=== PATIENT | male | born 1945 | race Caucasian/White ===

== ENCOUNTER 2022-06-25 18:41 | Emergency (ER) | payer MEDICARE, BC ==
[~2022-06-25] VITALS: Ht 182.9 cm; Wt 105.0 kg
[~2022-06-25 18:41] MED LIST: HYDR-3972 PO; OXYC10TA57 PO
[2022-06-25 18:55] VITALS: BP 108/64
[2022-06-25] MEDS ORDERED: dexamethasone sod phosphate 10mg/ml inj PO STA (20:09)
[2022-06-25] MEDS ORDERED: ketorolac trometh inj. 60 MG/2 ML VIAL IM ONE (20:10)
[2022-06-25] MEDS ORDERED: orphenadrine citrate 60mg/2ml inj. IM ONE (20:10)
[2022-06-25] MEDS ORDERED: oxyCODONE/APAP 10/325mg tablet PO ONE ×2 (20:10→22:00)
[2022-06-25 21:13] LABS: BASOPHILS % (AUTO) 0.2 % (0-1); EOSINOPHILS # (AUTO) 0.1 X10'3 (0-0.9); EOSINOPHILS % (AUTO) 0.8 % (0-6); HEMATOCRIT 41.9 % (42.0-52.0); HEMOGLOBIN 14.2 g/dl (14.0-17.9); LYMPHOCYTES # (AUTO) 2.1 X10'3 (1.1-4.8); LYMPHOCYTES % (AUTO) 19.7 % (21-51); MEAN CORPUSCULAR VOLUME 91.1 FL (78-98); MEAN PLATELET VOLUME 7.2 FL (7.4-10.4); MONOCYTES # (AUTO) 0.8 X10'3 (0-0.9); MONOCYTES % (AUTO) 7.7 % (2-12); NEUTROPHILS # (AUTO) 7.8 X10'3 (1.8-7.7); NEUTROPHILS % (AUTO) 71.6 % (42-75); PLATELET COUNT 310 X10'3 (140-440); RED BLOOD COUNT 4.59 X10'6 (4.70-6.10); RED CELL DISTRIBUTION WIDTH 12.8 % (11.5-14.5); WHITE BLOOD COUNT 10.9 X10'3 (4.5-11.0)
[2022-06-25 21:28] LABS: ALANINE AMINOTRANSFERASE 11 U/L (12-78); ALBUMIN 3.6 G/DL (3.4-5.0); ALBUMIN/GLOBULIN RATIO 1.1 (1.1-1.5); ALKALINE PHOSPHATASE 70 IU/L (46-116); ANION GAP 7 (8-16); ASPARTATE AMINO TRANSFERASE 18 U/L (10-37); BILIRUBIN,TOTAL 0.4 MG/DL (0.1-1.0); BLOOD UREA NITROGEN 32 MG/DL (7-18); BUN/CREATININE RATIO 33.3 (5.4-32.0); CALCIUM 9.2 MG/DL (8.5-10.1); CHLORIDE 101 MMOL/L (99-107); CREATININE 0.96 MG/DL (0.60-1.10); GLUCOSE 104 MG/DL (70-104); SODIUM 134 MMOL/L (135-145); TOTAL CARBON DIOXIDE 25.7 MMOL/L (24-32); TOTAL PROTEIN 6.9 G/DL (6.4-8.2); eGFR 76 ML/MIN
[2022-06-25] MEDS ORDERED: diazepam 5mg tablet PO ONE (22:00)
[2022-06-25] MEDS ORDERED: haloperidol 1mg tablet PO ONE (22:00)
[2022-06-25] MEDS ORDERED: haloperidol 1mg tablet PO SCH (22:00)
--- NOTE | 2022-06-25 22:06 | NUR ---
Agree with A Mora BRUSH MAKER assessment of patient.
[2022-06-25] MEDS ORDERED: NALO4SPR BOTHNARES (22:17)
[2022-06-25] MEDS ORDERED: OXYC-138 PO (22:17)
[2022-06-25] MEDS ORDERED: GABA300C PO (22:17)
[2022-06-25] MEDS ORDERED: HALO2TAB PO (22:17)
[2022-06-25 22:22] LABS: CLARITY,URINE CLEAR (Clear); COLOR,URINE STRAW (Yellow); GLUCOSE, URINE NEGATIVE (Neg); KETONES,URINE NEGATIVE (Neg); LEUKOCYTE ESTERASE ,URINE NEGATIVE (Neg); NITRITES, URINE NEGATIVE (Neg); OCCULT BLOOD,URINE NEGATIVE (Neg); PH,URINE 6.5 (4.8-8.0); PROTEIN,URINE NEGATIVE (Neg); UROBILINOGEN,URINE 0.2 E.U/dL (0.2-1.0)
--- NOTE | 2022-06-25 22:24 | NUR ---
PO MEDS X3 GIVEN
[2022-06-25 22:27] LABS: UA COLLECTION TYPE NON-SPECIFIED
== END 2022-06-25 23:04 | disposition home or self-care (01) ==
LOC: ER 18:41
DX: M54.59 Other low back pain (principal); G89.29 Other chronic pain; G20 Parkinson's disease; Z79.899 Other long term (current) drug therapy; Z79.1 Long term (current) use of non-steroidal anti-inflammatories (NSAID)
CPT/HCPCS: 36415; 72131; 80053; 81003; 84145; 85025; 96372; 99284; J1100; J1885; J2360

== ENCOUNTER 2023-03-06 12:18 | Emergency (ER) | payer MEDICARE, BC ==
[~2023-03-06] VITALS: Ht 182.9 cm; Wt 104.0 kg
[~2023-03-06 12:18] MED LIST changes: +GABA300C PO; +HALO2TAB PO; -HYDR-3972 PO; +NALO4SPR BOTHNARES; +OXYC-138 PO
[2023-03-06 12:20] VITALS: RESP 16; TEMP 98
[2023-03-06 13:12] LABS: BASOPHILS # (AUTO) 0.1 X10'3 (0-0.2); BASOPHILS % (AUTO) 0.9 % (0-1); EOSINOPHILS # (AUTO) 0.1 X10'3 (0-0.9); EOSINOPHILS % (AUTO) 0.9 % (0-6); HEMATOCRIT 43.5 % (42.0-52.0); HEMOGLOBIN 14.5 g/dl (14.0-17.9); LYMPHOCYTES # (AUTO) 1.5 X10'3 (1.1-4.8); LYMPHOCYTES % (AUTO) 18.6 % (21-51); MEAN CORPUSCULAR HEMOGLOBIN 30.5 PG (27.0-31.0); MEAN CORPUSCULAR HGB CONC 33.3 g/dL (33.0-36.5); MEAN CORPUSCULAR VOLUME 91.7 FL (78-98); MEAN PLATELET VOLUME 8.2 FL (7.4-10.4); MONOCYTES # (AUTO) 0.7 X10'3 (0-0.9); MONOCYTES % (AUTO) 8.5 % (2-12); NEUTROPHILS # (AUTO) 5.7 X10'3 (1.8-7.7); NEUTROPHILS % (AUTO) 71.1 % (42-75); PLATELET COUNT 300 X10'3 (140-440); RED BLOOD COUNT 4.75 X10'6 (4.70-6.10); RED CELL DISTRIBUTION WIDTH 13.4 % (11.5-14.5); WHITE BLOOD COUNT 8.1 X10'3 (4.5-11.0)
[2023-03-06 13:22] LABS: ALANINE AMINOTRANSFERASE 11 U/L (12-78); ALBUMIN 3.9 G/DL (3.4-5.0); ALBUMIN/GLOBULIN RATIO 1.1 (1.1-1.5); ALKALINE PHOSPHATASE 80 IU/L (46-116); ANION GAP 6 (8-16); ASPARTATE AMINO TRANSFERASE 20 U/L (10-37); BILIRUBIN,TOTAL 0.6 MG/DL (0.1-1.0); BLOOD UREA NITROGEN 28 MG/DL (7-18); CALCIUM 9.7 MG/DL (8.5-10.1); CHLORIDE 105 MMOL/L (99-107); CREATININE 1.12 MG/DL (0.60-1.10); GLUCOSE 105 MG/DL (70-104); LIPASE < 50 U/L (73-393); POTASSIUM 4.2 MMOL/L (3.5-5.1); SODIUM 139 MMOL/L (135-145); TOTAL CARBON DIOXIDE 27.8 MMOL/L (24-32); TOTAL PROTEIN 7.5 G/DL (6.4-8.2); eCRCL 61 ML/MIN; eGFR 64 ML/MIN
[2023-03-06 14:01] LABS: BILIRUBIN,URINE NEGATIVE (Neg); CLARITY,URINE SLIGHTLY CLOUDY (Clear); COLOR,URINE YELLOW (Yellow); GLUCOSE, URINE NEGATIVE (Neg); KETONES,URINE NEGATIVE (Neg); LEUKOCYTE ESTERASE ,URINE NEGATIVE (Neg); NITRITES, URINE NEGATIVE (Neg); OCCULT BLOOD,URINE NEGATIVE (Neg); PROTEIN,URINE NEGATIVE (Neg); UROBILINOGEN,URINE 0.2 E.U/dL (0.2-1.0)
[2023-03-06 14:02] LABS: UA COLLECTION TYPE CLN CATCH MIDSTREAM
[2023-03-06 14:06] VITALS: BP 112/78; PULSE 65; O2SAT 94
[2023-03-06 14:13] LABS: MUCUS STRANDS MANY /LPF (Neg)
[2023-03-06 14:14] LABS: CAL OXALATE CRYSTALS 4+ /HPF (NEGATIVE); RBC,URINE NONE SEEN /HPF (0-2); WBC,URINE 0-4 /HPF (0-4)
[2023-03-06 14:15] LABS: BACTERIA,URINE NONE SEEN /HPF (Neg); SQUAMOUS EPITHELIAL CELL,UR FEW /LPF (FEW)
== END 2023-03-06 16:37 | disposition left against medical advice (07) ==
LOC: ER 12:18
DX: R10.9 Unspecified abdominal pain (principal); R11.0 Nausea; Z53.21 Procedure and treatment not carried out due to patient leaving prior to being seen by health care provider
CPT/HCPCS: 36415; 80053; 81001; 83690; 85025; 99281

== ENCOUNTER 2024-04-20 13:00 | Emergency (ER) | payer OTHER, MEDICARE, BC ==
[~2024-04-20] VITALS: Ht 182.9 cm; Wt 100.9 kg
[2024-04-20] MEDS: morphine 4 MG/ML inj SYRINge IV ONE ×2 (13:23→16:54)
[2024-04-20] MEDS: ondansetron/PF 4mg/2ml inj IV ONE (13:23)
[2024-04-20] MEDS: LIDOcaine 1% 30ml preserv. free vial SQ STA (13:43)
[2024-04-20] MEDS: ceFAZolin/D5W- 1GM premix 50 ML IV STA (13:56)
[2024-04-20] MEDS: TETanus/Pertussis (Acell)/Diphther VAC/PF (Tdap-Adult) 0.5ml syringe IMVAC ONE (13:56)
[2024-04-20] MEDS ORDERED: HYDR-3973 PO (16:23)
[2024-04-20] MEDS ORDERED: CEPH-585 PO (16:23)
[2024-04-20] MEDS: cephalexin 250mg capsule PO ONE (16:54)
[2024-04-20] MEDS: mupirocin 2% ointment 22GM TP STA (16:55)
[2024-04-20 17:04] VITALS: BP 143/79; PULSE 67; RESP 16; TEMP 98; O2SAT 99
== END 2024-04-20 17:01 | disposition home or self-care (01) ==
LOC: ER 13:01
DX: S62.633B Displaced fracture of distal phalanx of left middle finger, initial encounter for open fracture (principal); G89.29 Other chronic pain; G20.A1 Parkinson's disease without dyskinesia, without mention of fluctuations; Z79.2 Long term (current) use of antibiotics; Z79.899 Other long term (current) drug therapy; X58.XXXA Exposure to other specified factors, initial encounter; Y93.89 Activity, other specified; Y92.89 Other specified places as the place of occurrence of the external cause; Y99.8 Other external cause status
CPT/HCPCS: 29130; 73130; 90471; 90715; 96365; 96375; 96376; 99284; J0690; J2270; J2405; J7030; 12004; A6258; A6446; A6449

== ENCOUNTER 2025-04-26 13:23 | Inpatient (IN) | payer OTHER, MEDICARE, BC ==
[~2025-04-26] VITALS: Ht 182.9 cm; Wt 94.4 kg
--- NOTE | 2025-04-26 14:07 | Physician Documentation ---
History of Present Illness ~ Chief Complaint: Hypotension Stated Complaint: LOW BLOOD PRESURE Time Seen by MD: 13:41 OK to notify your PCP?: Yes Source: patient Mode of Arrival: POV Exam Limitations: no limitations HPI 79-year-old male with Parkinson's who is here due to concern about dizziness when he stands up that has been an ongoing issue getting progressively worse. Patient's saw his carton counter feeder about three weeks ago and was started on midodrine twice a day but symptoms did not improve and thus the prescription was increased recently to 3 times a day but admits that she did not yet start this because they are almost out of the current prescription and have to wait for the DC to mail them another prescription. His carton counter feeder Dr. Yoder sent a prescription for midodrine to his local pharmacy but patient's states they would not dispense it since it showed he has a prescription coming from the mail-order pharmacy. Patient's states it they are down to two remaining pills of the midodrine. Patient recently had a Holter monitor due to concern for bradycardia and states that Dr. Yoder was not concerned and stated that still the next step would be to increase the midodrine to 3 times a day and then if that did not work she states he said the plan would be to increase the strength of the midodrine. No chest pain, palpitations, shortness of breath, lower extremity edema. Patient states that he gets frequently sweaty intermittently during the day but attributes this to needing his Parkinson's medications. No nausea. 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 HEENT: NCAT, EOMI, PERRL, normal oropharynx, moist oral mucosa. NECK: Supple, trachea midline. CARDIAC: Regular rate and rhythm, no murmurs, rubs, or gallops. PV: Equal distal pulses. No lower extremity edema, cap refill less than 2 seconds. RESPIRATORY: Equal breath sounds, clear to auscultation bilaterally, no respiratory distress. GASTROINTESTINAL: Non distended, soft, nontender, No guarding or rebound. MUSCULOSKELETAL: Normal range of motion, nontender, no swelling. NEUROLOGICAL: Awake, alert, and oriented x 3. SKIN: Warm/dry, no pallor, no rash. PSYCH: Alert and appropriate. Affect congruent with mood. Speech is clear. Good eye contact. Progress Results/Orders Results/Orders Orders - KAEL BURTON Urinalysis, Cult If Indicated (04/26/25 13:59) Hs Troponin I W Calculations (04/26/25 15:59) Hs Troponin I W Calculations (04/26/25 16:59) * Orthostatic Vitals* Q12H (04/26/25 13:59) Chest,Single View (04/26/25 14:13) Page Hospitalist (04/26/25 14:43) Completed Orders - KAEL BURTON Cbc/Diff (04/26/25 13:59) PBNP (04/26/25 13:59) BMP (04/26/25 13:59) Hs Troponin I W Calculations (04/26/25 13:59) Stat Ekg (04/26/25 13:59) Chest,Single View (04/26/25 14:13) Vital Signs 04/26/25 04/26/25 13:28 14:32 Temp 96.9 Pulse 50 47 55 57 Resp 16 B/P (MAP) 110/57 111/57 110/52 97/57 Pulse Ox 97 O2 Flow Rate 0 Laboratory Tests Test 04/26/25 14:22 04/26/25 14:55 White Blood Count 7.2 Red Blood Count 4.51 L Hemoglobin 14.1 Hematocrit 41.6 L Mean Corpuscular Volume 92.2 Mean Corpuscular Hemoglobin 31.3 H Mean Corpuscular Hemoglobin Concent 33.9 Red Cell Distribution Width 13.3 Platelet Count 231 Mean Platelet Volume 7.9 Neutrophils (%) (Auto) 69.8 Lymphocytes (%) (Auto) 20.4 L Monocytes (%) (Auto) 7.8 Eosinophils (%) (Auto) 1.2 Basophils (%) (Auto) 0.8 Neutrophils # (Auto) 5.0 Lymphocytes # (Auto) 1.5 Monocytes # (Auto) 0.6 Eosinophils # (Auto) 0.1 Basophils # (Auto) 0.1 CBC Comment Sodium Level 140 Potassium Level 4.2 Chloride Level 107 Carbon Dioxide Level 31.3 Anion Gap 2 L Blood Urea Nitrogen 28 H Creatinine 0.92 Estimated GFR/1.73 m2 79 BUN/Creatinine Ratio 30.4 H Glucose Level 104 Calcium Level 9.9 Troponin I High Sensitivity 5 Pro-B-Type Natriuretic Peptide 48 Albumin 3.6 Chemistry Comments Urine Specimen Description Cln catch midstream Urine Color Yellow Urine Clarity Slightly cloudy Urine pH 5.5 Urine Specific [place] 1.025 Urine Protein Negative Urine Glucose (UA) Negative Urine Ketones Trace H Urine Occult Blood Negative Urine Nitrite Negative Urine Bilirubin Negative Urine Urobilinogen 0.2 Urine Leukocyte Esterase Negative Volume Urine Centrifuged 10 ml Urine Comment Medical Decision Making Additional information obtaine: N/A Findings N/A Differential Dx:Considerations: Include: anemia, CVA, dehydration, dysrhythmia, electrolyte imbalance, encephalopathy, Guillain-[place], hypoglycemia, hypotension, hypovolemia, labyrinthitis, Meniere's disease, myasathenia gravis, myocardial infarction, pulmonary embolus, renal failure, respiratory failure, TIA, VBI, vertigo central, vertigo peripheral, vestibular neuronitis, other Additional Information GIVEN THE INSIDIOUS NATURE OF THE PRESENTATION OF HIS DIZZINESS WITH STANDING WHICH HAS MIRRORED THE PROGRESSION OF HIS OTHER PARKINSON'S SYMPTOMS I SUSPECT THAT HIS DIZZINESS IS DUE TO AN AUTONOMIC NERVOUS SYSTEM ISSUE WHICH I EXPLAINED CAN BE FROM A PARKINSON'S. I RECOMMENDED THAT THEY FOLLOW UP WITH PATIENT'S NEUROLOGIST AT [facility] REGARDING THE SYMPTOMS, IS REQUESTING ADMISSION TO HOSPITAL "ECHOCARDIOGRAM AND FURTHER TESTING STATING, IT IS ABOUT TIME, DON'T YOU THINK." Departure Time of Disposition: 14:33 Admitted to Inpatient Unit: to hospitalist Impression: Primary Impression: Orthostatic hypotension Additional Impressions: Bradycardia Parkinson disease Qualified Codes: G20.A1 - Parkinson's disease without dyskinesia, without mention of fluctuations Autonomic dysfunction Condition: Fair Referrals: NO PRIMARY CARE PROVIDER (PCP) Education Educated: Patient Educated regarding: diagnosis, treatment, need for follow up Signature Scribe Signature: X Attestation: KAEL ALBERTO Apr 26, 2025 14:07
--- NOTE | 2025-04-26 14:09 | ELECTROCARDIOGRAPH REPORT ---
[facility] Test Date: 2025-04-26 Test Time: 14:07:30 Pat Name: MISBAH LINCOLN Department: [facility]- Patient ID: [facility]-[id number] Room: [place] [address] Gender: M Application Tester: : 1945 Requested By: KAEL BURTON Order Number: [id number] Reading MD: Dr. Srinivasan Cotton Measurements Intervals [place] Rate: 48 P: 54 FL: 204 QRS: 56 QRSD: 112 T: 62 QT: 447 QTc: 400 Interpretive Statements Sinus bradycardia Incomplete left bundle branch block Abnormal inferior Q waves Minimal ST elevation, inferior leads Electronically Signed On 04-28-2025 20:43:[address] Srinivasan Cotton Please click the below link to view image of tracing.
--- NOTE | 2025-04-26 14:35 | RADIOLOGY REPORT ---
CHEST RADIOGRAPH Indication: dizziness Technique: Single frontal view of the chest was obtained Comparison: None FINDINGS: Lines and Tubes: None Lungs: No focal consolidation. Pleura: No effusion. No pneumothorax. Cardiomediastinal contours: Unremarkable Bones: No acute osseous abnormality. IMPRESSION: No acute cardiopulmonary disease.
[2025-04-26 14:40] LABS: MEAN PLATELET VOLUME 7.9 FL (7.4-10.4); RED CELL DISTRIBUTION WIDTH 13.3 % (11.5-14.5)
[2025-04-26 14:58] LABS: CREATININE 0.92 MG/DL (0.60-1.10); PRO BRAIN NATRIURETIC PEPTIDE 48 PG/ML (0-450); TOTAL CARBON DIOXIDE 31.3 MMOL/L (24-32); eCRCL 71 ML/MIN; eGFR 79 ML/MIN
[2025-04-26 15:04] LABS: LEUKOCYTE ESTERASE ,URINE NEGATIVE (Neg); NITRITES, URINE NEGATIVE (Neg); OCCULT BLOOD,URINE NEGATIVE (Neg)
[2025-04-26 15:06] LABS: UA COLLECTION TYPE CLN CATCH MIDSTREAM
[2025-04-26 15:11] LABS: MUCUS STRANDS MODERATE /LPF (Neg); SQUAMOUS EPITHELIAL CELL,UR FEW /LPF (FEW)
[2025-04-26] MEDS ORDERED: magnesium sulf-water 2g/50mL 50 ML IV PRN (16:00)
[2025-04-26] MEDS ORDERED: magnesium sulf-water 4G/100mL 100 ML IV PRN (16:00)
[2025-04-26] MEDS ORDERED: potassium Cl 20 mEq SR tablet PO PRN ×2 (16:00)
[2025-04-26] MEDS ORDERED: potassium Cl 40MEQ/1/2NS 520ml 520 ML IV PRN (16:00)
[2025-04-26] MEDS ORDERED: ondansetron/PF 4mg/2ml inj IV PRN (16:00)
[2025-04-26] MEDS ORDERED: mag hydrox/Alum hydrox/simeth 30ml oral suspension PO PRN (16:00)
[2025-04-26] MEDS ORDERED: bisacodyl 10mg suppository rectal RC PRN (16:00)
[2025-04-26] MEDS ORDERED: [UNRECOGNIZED DRUG - CODE] PO (16:05)
[2025-04-26] MEDS ORDERED: MIDO2.5T PO ×2 (16:05→16:50)
[2025-04-26] MEDS ORDERED: MAGN400T39 PO (16:08)
[2025-04-26] MEDS ORDERED: TAMS-55 PO (16:08)
[2025-04-26] MEDS ORDERED: POLY17PO10 PO (16:08)
[2025-04-26] MEDS ORDERED: FINA5TAB38 PO (16:08)
[2025-04-26] MEDS ORDERED: QUET25TA PO (16:08)
[2025-04-26] MEDS ORDERED: DONE10TA19 PO (16:08)
[2025-04-26] MEDS ORDERED: MELA10TA20 PO (16:09)
[2025-04-26] MEDS: normal saline 1000ml 1,000 ML IV SCH (16:23)
[2025-04-26] MEDS: midodrine tablet 2.5 MG TABLET PO SCH ×2 (16:25→22:53)
--- NOTE | 2025-04-26 16:28 | HISTORY AND PHYSICAL ---
History & Physical Providers to CC ~ History of Present Illness Reason for Admit\Complaint: Near-syncope\bradycardia\hypotension History of Present Illness This is a 79-year-old male who presents to ED with near syncopal episode earlier today. The patient's nephew had caught the patient prior to falling the checked the blood pressure was 70/47 momentarily later she checked the blood pressure was 65/47. Approximally one month ago the patient has a onesimo syncopal episode and passed out ambulating. The patient is lightheaded a couple of times a day. He recently established care with Dr. Yoder die maker apprentice and due to his hypotension was started on midodrine 2.5 mg b.i.d. however this was increased recently to t.i.d. dosing. The patient did not have enough medications and the new script was sent to the [place] mail-order pharmacy and while waiting for the prescription a 30 day supply was sent to local [facility] pharmacy for which the pharmacy refused to fill the script as that has a script sent to the mail-order pharmacy. The patient's informs me they do have multiple insurance policies however do not have insurance for prescriptions and PICC cast for medications and that money was not the issue but the [facility] pharmacy refused to fill the prescription. The patient has Parkinson's disease diagnosed for 15 years but likely has been experiencing symptoms for close to 20 years. The patient is followed by Neurology at [facility] and his next appointment is in May. The patient has no noticeable tremors at rest and cognitively is intact. does informed me however the patient sleeps the majority of the time. Allergies: Coded Allergies: No Known Allergies (Unverified , 04/26/25) Home Medications Home Medications Active Reported Melatonin 10 Mg Tab.rapdis 2 Tab PO HS Miralax* (Polyethylene Glycol) 1 Packet Packet 1 Pkt PO DAILY dissolve in water Magnesium (Magnesium Oxide) 400 Mg Magnesium Tablet 1 Tab PO HS PRN NEEDED Proscar (Finasteride) 5 Mg Tablet 1 Tab PO DAILY Flomax* (Tamsulosin HCl) 0.4 Mg Cap.sr.24h 1 Cap PO DAILY Aricept (Donepezil HCl) 10 Mg Tablet 1 Tab PO HS Seroquel (Quetiapine Fumarate) 25 Mg Tablet 2 Tab PO HS Proamatine* (Midodrine) 2.5 Mg Tablet 1 Tab PO Q12H Sinemet 10-100 mg Tablet (Carbidopa/Levodopa) 10 Mg-100 Mg Tablet 1 Tab PO 5XD Past Medical History Past Medical History Degenerative disc disease of the lumbar spine Advanced Parkinson's disease 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 Past Social History Social History Comment Patient denes history of smoking/ drinking alcohol nor any illicit drug use DNR Code Status ROS ROS Except for positives in the HPI the rest of the 14 point review systems is negative Exam Vitals: Vital Signs Date Time Temp Pulse Resp B/P (MAP) Pulse Ox O2 Delivery O2 Flow Rate FiO2 04/26/25 14:32 47 111/57 55 110/52 57 97/57 04/26/25 13:28 96.9 16 97 0 General: Gen. No acute distress alert and oriented 4 Lungs clear to ascultation bilaterally, no wheezes rales or rhonchi appreciated Heart normal sinus rhythm no murmurs rubs or clicks noted Abdomen soft nontender bowel sounds are normoactive Lower extremities no clubbing cyanosis, nor edema appreciated bilaterally Diagnostic Data Last Recorded Lab Results: 04/26/25 1422 04/26/25 1422 Advance Care Planning Advanced Care plannin - 30 Minutes Problems: (1) Near syncope Additional Plan # near syncope Likely secondary to hypotension possibly also possibly secondary to symptomatic bradycardia Orthostatic vital signs Echocardiogram Tele monitor Continue midodrine 2.5 mg t.i.d. Is follow up by die maker apprentice's Dr. Yoder - not yet ready for a pacemaker however has a possibility in the future per patient's # advanced Parkinson's disease Is followed by a neurologist at [facility] Next appointment is in May and is seen every three months Awaiting med reconciliation and will continue home meds # degenerative disc disease of the lumbar spine Status post micro procedures including diskectomies and foramenectomy Is followed by pain management in the outpatient setting Awaiting med reconciliation # dehydration mild IV normal saline at 100 cc an hour Daily metabolic panel is ordered # DVT prophylaxis SCDs SQ Lovenox I spent a total of 17 minutes on reviewing various resuscitative measures/ ACP with the patient at the time of admission. The patient has decided on DNR code status. Date of Service: Apr 26, 2025 Billing Provider: LEAH VILLEGAS DO Common Visit Codes: 24524-ZSFVOYL INP/OBS CARE (HIGH) Secondary Visit Codes: 21069-QVGMSFYS CARE PLAN 30 MINUTES LEAH VILLEGAS DO Apr 26, 2025 16:27
[2025-04-26] MEDS: PERFLUTREN PROTEIN-A MICROSPHR (Optison) 0.22 MG/ML 3ML VIAL IV ONE (16:51)
[2025-04-26] MEDS: K and/or MAG REPLACEMENT MC SCH (20:00)
[2025-04-26] MEDS: docusate sod 100mg capsule PO SCH (20:19)
[2025-04-26] MEDS: enoxaparin 40mg/0.4ml syringe SQ SCH (20:21)
[2025-04-26] MEDS: MELATONIN 10 MG PO SCH (22:30)
[2025-04-26] MEDS: carbidoba-levodopa 25-100mg tablet PO SCH (22:52)
[2025-04-26] MEDS: polyethylene glycol 3350 17gm powd pack PO SCH (22:53)
[2025-04-26] MEDS: donepezil 5mg tablet PO SCH (23:07)
[2025-04-27] VITALS (10 sets, daily range): BP systolic 69–182; BP diastolic 44–88; PULSE 46–110; RESP 13–18; TEMP 97.6–98.7; O2SAT 94–97
[2025-04-27] MEDS: carbidoba-levodopa 25-100mg tablet PO SCH (05:35)
[2025-04-27 05:54] LABS: MEAN PLATELET VOLUME 8.4 FL (7.4-10.4); RED CELL DISTRIBUTION WIDTH 12.7 % (11.5-14.5)
[2025-04-27 06:11] LABS: CREATININE 0.83 MG/DL (0.60-1.10); TOTAL CARBON DIOXIDE 27.8 MMOL/L (24-32); eCRCL 79 ML/MIN; eGFR 89 ML/MIN
--- NOTE | 2025-04-27 11:58 | PROGRESS NOTE ---
Daily Progress Note Providers to CC ~ Antibiotic Timeout Antibiotic Ordered?: No Subjective Patient states he feels hot all over his body has a he has been in son. RN reports patient continues to have orthostatics. He is supposed to be on midodrine 10 mg p.o. t.i.d. as per Dr. Yoder however did not receive it from the pharmacy. Objective Vital Signs Date Time Temp Pulse Resp B/P (MAP) Pulse Ox O2 Delivery O2 Flow Rate FiO2 04/27/25 10:00 97.9 53 13 108/56 (73) 94 Room Air 0.0 21 Result Diagram: 04/27/2544604/27/25446 Awake cooperative sitting on a bedside chair HEENT normocephalic atraumatic extraocular movements are intact Neck supple, no JVD Chest: Clear to auscultation, no wheezes crackles rhonchi Heart: Regular rate rhythm, no murmur or gallop rub Abdomen is soft nontender no organomegaly Extremities no cyanosis clubbing or edema Neuro exam is nonfocal. Other Results Medications reviewed Problem\Assessment\Plan Problems/Diagnosis: (1) Near syncope 79 years old male admitted after he had a syncopal episode. Patient's nephew caught the patient prior to falling. When his checked the blood pressure, it was 70/47 and a repeat blood pressure check was 65/47. Patient had a similar syncopal episode about a month ago and passed out while ambulating. He has been feeling lightheaded. Patient has recently been started on midodrine by his vascular ultrasound technologist however he did not have enough medication because the dose was increased and pharmacy refused to fill his prescription. #. Syncope: Due to orthostatic hypotension. Orthostatic vitals reviewed. Blood pressure lying down is 107/59 with a pulse of 47 which dropped down to 69/44 on standing position with a pulse of 64. We will hold Flomax and monitor #. Advanced Parkinson's: Continue Sinemet # orthostatic hypotension: ? Due to Flomax/autonomic dysfunction because of his Parkinson's. Resume midodrine #. Chronic back pain: Patient has a microdiskectomy and for neck me of the lumbar spine: Continue address pain management as necessary #. Code status: Patient is a DNR #. Continue PT and monitor blood pressure. Date of Service: Apr 27, 2025 Billing Provider: CELINA SOLIS MD Common Visit Codes: [id number] INP/OBS CARE(HIGH) CELINA SOLIS MD Apr 27, 2025 11:58
[2025-04-27] MEDS: normal saline 1000ML IV soln IVB ONE (15:34)
[2025-04-27] MEDS: midodrine 5mg tablet PO SCH (16:11)
[2025-04-28] MEDS: cosyntropin 250mcg inj IV ONE (04:19)
[2025-04-28 05:56] LABS: MEAN PLATELET VOLUME 8.2 FL (7.4-10.4); RED CELL DISTRIBUTION WIDTH 13.2 % (11.5-14.5)
[2025-04-28 06:00] VITALS: BP 156/74; PULSE 52; RESP 15; TEMP 97; O2SAT 97
[2025-04-28 06:09] LABS: CREATININE 0.86 MG/DL (0.60-1.10); TOTAL CARBON DIOXIDE 27.6 MMOL/L (24-32); eCRCL 76 ML/MIN; eGFR 86 ML/MIN
[2025-04-28 07:50] VITALS: RESP 16; O2SAT 97
[2025-04-28 10:00] VITALS: BP_SYST 163; BP_SYST 183; BP_SYST 96; BP_DIAS 61; BP_DIAS 63; BP_DIAS 70; PULSE 57; PULSE 59; PULSE 60; PULSE 68; RESP 17; TEMP 98.1; O2SAT 95
--- NOTE | 2025-04-28 14:08 | PROGRESS NOTE ---
Daily Progress Note Providers to CC ~ Antibiotic Timeout Antibiotic Ordered?: No Subjective Continues to have dizziness when he stands up. Patient states that he used allowed to stand up he might do better. RN at bedside reports that patient was seen by PT once. Patient given a dose of cortisol by Dr. Yoder Objective Vital Signs Date Time Temp Pulse Resp B/P (MAP) Pulse Ox O2 Delivery O2 Flow Rate FiO2 04/28/25 10:00 98.1 60 17 163/70 (101) 95 Room Air 04/27/25 20:00 0.0 21 Result Diagram: 04/28/2552104/28/25521 Awake cooperative , noted to have a parkinson tremor of his hands HEENT normocephalic atraumatic extraocular movements are intact Neck supple, no JVD Chest: Clear to auscultation, no wheezes crackles rhonchi Heart: Regular rate rhythm, no murmur or gallop rub Abdomen is soft nontender no organomegaly Extremities no cyanosis clubbing or edema Neuro exam is nonfocal. Other Results Medications reviewed Problem\Assessment\Plan Problems/Diagnosis: (1) Near syncope 79 years old male admitted after he had a syncopal episode. Patient's nephew caught the patient prior to falling. When his checked the blood pressure, it was 70/47 and a repeat blood pressure check was 65/47. Patient had a similar syncopal episode about a month ago and passed out while ambulating. He has been feeling lightheaded. Patient has recently been started on midodrine by his lead qa analyst however he did not have enough medication because the dose was increased and pharmacy refused to fill his prescription. #. Syncope: Due to orthostatic hypotension which may be due to autonomic dysfunction from Parkinson's. Orthostatic vitals reviewed. #. Advanced Parkinson's: Continue Sinemet # orthostatic hypotension: Resumed midodrine Fall precautions.Continue PT May just need to go home with compression stockings. #. Chronic back pain: Patient has a microdiskectomy and for neck and lumbar spine: Continue address pain management as necessary #. Code status: Patient is a DNR #. Continue PT and monitor blood pressure. Date of Service: Apr 28, 2025 Billing Provider: CELINA SOLIS MD Common Visit Codes: [id number] INP/OBS CARE(HIGH) CELINA SOLIS MD Apr 28, 2025 14:08
[2025-04-28 18:00] VITALS: BP 146/80; PULSE 53; RESP 17; TEMP 98; O2SAT 97
[2025-04-28 20:00] VITALS: BP_SYST 136; BP_SYST 139; BP_SYST 153; BP_DIAS 74; BP_DIAS 82; BP_DIAS 86; PULSE 50; PULSE 57; PULSE 61; RESP 17; O2SAT 97
[2025-04-28 22:00] VITALS: BP 137/74; PULSE 50; RESP 15; TEMP 99; O2SAT 94
[2025-04-29 04:42] LABS: MEAN PLATELET VOLUME 8.0 FL (7.4-10.4); RED CELL DISTRIBUTION WIDTH 13.3 % (11.5-14.5)
[2025-04-29 04:54] LABS: CREATININE 0.77 MG/DL (0.60-1.10); TOTAL CARBON DIOXIDE 28.1 MMOL/L (24-32); eCRCL 85 ML/MIN; eGFR > 90 ML/MIN
[2025-04-29 06:00] VITALS: BP 139/81; PULSE 86; RESP 16; TEMP 97.5; O2SAT 97
[2025-04-29 08:00] VITALS: RESP 16; O2SAT 97
[2025-04-29 10:00] VITALS: BP 117/64; PULSE 51; RESP 14; TEMP 98; O2SAT 92
--- NOTE | 2025-04-29 10:45 | DISCHARGE SUMMARY ---
Discharge Summary Providers to CC ~ Discharge Summary Admission Diagnosis: NEAR-SYNCOPE, BRADYCARDIA, HYPOTENSION Hospital Course DATE OF ADMISSION: 04/26/2025 DATE OF DISCHARGE:04/29/2025 Discharge Diagnosis\Comment: Orthostatic hypotension likely due to Flomax Operations\Procedures: Echocardiogram Consultants: None Complications: None Condition on DC: Stable Continued Medications: Carbidopa/Levodopa (Sinemet 10-100 mg Tablet) 10 Mg-100 Mg Tablet 1 TAB PO 5XD, TAB Donepezil HCl (Aricept) 10 Mg Tablet 1 TAB PO HS, TAB Finasteride (Proscar) 5 Mg Tablet 1 TAB PO DAILY, TAB Magnesium Oxide (Magnesium) 400 Mg Magnesium Tablet 1 TAB PO HS PRN for constipation, TAB NEEDED Melatonin (Melatonin) 10 Mg Tab.rapdis 2 TAB PO HS for sleep, TAB Midodrine Hcl* (Proamatine*) 2.5 Mg Tablet 1 TAB PO Q8H for 30 Days, #90 TAB 0 Refills Polyethylene Glycol 3350* (Miralax*) 1 Packet Packet 1 PKT PO DAILY for constipation, PKT dissolve in water Quetiapine Fumarate (Seroquel) 25 Mg Tablet 2 TAB PO HS, TAB Discontinued Medications: Tamsulosin Hcl* (Flomax*) 0.4 Mg Cap.sr.24h 1 CAP PO DAILY, CAP Discharge Summary: Reason for admission: 79 years old male presented to the ER for evaluation of a near syncopal episode. Patient's nephew caught him prior to falling. ning ck the blood pressure which was 70/47 right after the incident and a follow up blood pressure check was 65/47. Patient had a similar episode a month ago and his bookkeeper assistant Dr. Yoder started him on midodrine 2.5 mg p.o. b.i.d. Please refer to admission H&P for more details Hospital course: Patient was admitted on the monitored floor under hospital course as follows. # near syncope due to orthostatic hypotension: Flomax discontinued. Patient started on midodrine. His blood pressures have improved and so has his orthostatic hypotension # BPH: Flomax discontinued. Patient continued on Proscar. He is advised to follow up with his urologist # Parkinson's: Continued on carbidopa/levodopa. # dementia: Continued on Aricept and Seroquel # code status: Patient was kept as a full code Discharge exam: Examined the patient on the day of discharge Awake cooperative , noted to have a parkinson tremor of his hands HEENT normocephalic atraumatic extraocular movements are intact Neck supple, no JVD Chest: Clear to auscultation, no wheezes crackles rhonchi Heart: Regular rate rhythm, no murmur or gallop rub Abdomen is soft nontender no organomegaly Extremities no cyanosis clubbing or edema Neuro exam is nonfocal. Disposition Home *Problems/Diagnosis: (1) Near syncope Total Time Spent on D/C: > 30 Minutes Date of Service: Apr 29, 2025 Billing Provider: CELINA SOLIS MD Common Visit Codes: 77965-CGI/OBS DISCH DAY >30min CELINA SOLIS MD Apr 29, 2025 10:45
--- NOTE | 2025-04-29 17:54 | CARDIOLOGY REPORT ---
APPROVED REPORT EXAM: Comprehensive 2D, Doppler, and color-flow Echocardiogram. Patient Location: [address] Blood Pressure: 108/56 mmHg Heart Rate: 52 bpm Rhythm: SINUS BRADYCARDIA Indications SYNCOPE HYPOTENSION Rug Cleaning Supervisor: [place] Yoder DO Previous echo: none 2D Dimensions RVDd 4.2 cm IVSd 1.5 (0.7-1.1cm) LVDd 4.4 cm PWd 1.1 (0.7-1.1cm) IVSs 1.7 (0.8-1.2cm) LVDs 2.0 (2.5-4.0cm) PWs 1.6 (0.8-1.2cm) LVOT Diameter 2.00 (1.8-2.4cm) LVEF(%) 85.4 (>50%) Ao Asc Diam. 3.72 cm FS (%) 54.4 % SV 76.8 ml CO 3.0 L/min M-Mode Dimensions Left Atrium(MM) 3.54 (2.5-4.0cm) IVSd 1.13 (0.7-1.1cm) LVDd 4.51 (4.0-5.6cm) Aortic Root 3.58 (2.2-3.7cm) PWd 1.44 (0.7-1.1cm) Aortic Cusp Exc 2.26 (1.5-2.0cm) IVSs 1.67 cm MV EPSS 0.5 (<0.5cm) LVDs 2.88 (2.0-3.8cm) FS (%) 36 % PWs 1.87 cm ESV(Teich) 31.6 ml LVEF(%) 66 (>50%) Biplane 2D LA Volumes LA ESV Index 28.92 mL/m2 Aortic Valve AoV Peak Zeferino. 159.2 cm/s AoV VTI 30.7 cm AO Peak GR. 10.1 mmHg AO Mean GR. 5 mmHg LVOT VTI 30.86 cm LVOT Peak Zeferino. 125.6 cm/s KARLI(VTI)/BSA 3.14 cm2/m2 KARLI (VTI) 3.14 cm2 AV DI 1.00 % Mitral Valve MV E Velocity 69.4 cm/s MV Peak Gr. 3 mmHg MV DECEL TIME 328 ms MV A Velocity 72.3 cm/s MV PHT 60 ms E/A Ratio 1.0 MVA (PHT) 3.67 cm2 MV VMax 92.5 cm/s TDI Medial E' P. V 8.54 cm/s E/Medial E' 8.1 Pulmonary Vein S1 Velocity 53.2 cm/s D2 Velocity 41.3 cm/s PVa Velocity 40.4 cm/s PVa Duration 124 msec LEFT VENTRICLE Normal LV size and hyperdynamic function. Moderate concentric hypertrophy. LVEF is 75-80%. RIGHT VENTRICLE RV is moderately dilated in size with normal function. Thickened RV free wall. ATRIA The left atrium size is upper limit normal. AORTIC VALVE Trileaflet AV appears mildly sclerotic without stenosis or insufficiency. MITRAL VALVE Mild MV annular calcification without stenosis. Trace regurgitation. TRICUSPID VALVE TV appears structurally normal with trace regurgitation. PULMONIC VALVE Normal PV without stenosis, physiologic insufficiency. GREAT VESSELS Aortic root is normal in size. Ascending aorta is normal in size. PERICARDIUM Normal pericardium. No effusion. Other Information Study Quality: Adequate Conclusion Normal LV size and hyperdynamic function. Moderate concentric hypertrophy. LVEF is 75-80%. RV is moderately dilated in size with normal function. Thickened RV free wall. The left atrium size is upper limit normal. Trileaflet AV appears mildly sclerotic without stenosis or insufficiency. Mild MV annular calcification without stenosis. Trace regurgitation. TV appears structurally normal with trace regurgitation. Normal pericardium. No effusion.
== END 2025-04-29 11:15 | disposition home or self-care (01) | DRG 312 ==
LOC: ER 13:24 → ED HOLD 16:06 → ORTHO 4S 23:35
PROVIDERS: ADMIT Family Medicine; ATTEND Family Medicine
DX: I95.1 Orthostatic hypotension (principal); G90.9 Disorder of the autonomic nervous system, unspecified; F02.80 Dementia in other diseases classified elsewhere, unspecified severity, without behavioral disturbance, psychotic disturbance, mood disturbance, and anxiety; G20.A1 Parkinson's disease without dyskinesia, without mention of fluctuations; E86.0 Dehydration; M51.369 Other intervertebral disc degeneration, lumbar region without mention of lumbar back pain or lower extremity pain; Z66 Do not resuscitate; Z96.651 Presence of right artificial knee joint; M54.9 Dorsalgia, unspecified; G89.29 Other chronic pain; T44.6X5A Adverse effect of alpha-adrenoreceptor antagonists, initial encounter; N40.0 Benign prostatic hyperplasia without lower urinary tract symptoms; Z87.891 Personal history of nicotine dependence; Y92.89 Other specified places as the place of occurrence of the external cause
CPT/HCPCS: 36415; 71045; 80048; 81001; 83735; 83880; 84484; 85025; 87081; 93005; 93306; 96360; 96372; 97110; 97116; 97161; 97530; 99285; A6213; A6590; G0378; J1650; J7030